=== PATIENT | female | born 1970 | race Hispanic/Latino ===

== ENCOUNTER 2024-07-19 12:59 | Emergency (ER) | payer SELFPAY ==
[2024-07-19] MEDS ORDERED: HYDROCODONE/APAP 7.5/325 MG TAB ONE (13:19)
[2024-07-19] MEDS ORDERED: IBUPROFEN 400 MG TAB ONE ×2 (13:19→13:23)
--- NOTE | 2024-07-19 16:31 | RAD REPORT ---
EXAMINATION: Tib Fib Right CLINICAL INDICATION: Leg pain FINDINGS: No fracture seen
--- NOTE | 2024-07-19 16:35 | RAD REPORT ---
Exam:Foot Left 3 View CLINICAL HISTORY: Left foot pain FINDINGS: No fracture or dislocation seen
--- NOTE | 2024-07-19 16:35 | RAD REPORT ---
EXAMINATION: Tib Fib Left CLINICAL INDICATION: Leg pain FINDINGS: No fracture seen
--- NOTE | 2024-07-19 16:41 | RAD REPORT ---
Exam:Foot Right 3 View CLINICAL HISTORY: Right foot pain FINDINGS: Cortical irregularity base of the second metatarsal probably overlapping of normal bone. Nondisplaced fracture considered less likely. However, if the patient has point tenderness in this region to suggest a fracture then CT scan would be recommended. No dislocation
--- NOTE | 2024-07-19 18:33 | RAD REPORT ---
EXAM:Lower Ext Wo Con W/ Mpr CLINICAL HISTORY: Foot pain status post fall TECHNIQUE: Computed axial tomography was obtained from the left ankle to the left foot. Coronal and s agittal reconstruction performed COMPARISON: X-ray July 19, 2024 FINDINGS: Edema is present within the posterior soft tissues. Small bony density lies adjacent to the lateral malleolus. No additional fracture seen. Specifically, a fracture involving the base of the second metatarsal not noted. No dislocation IMPRESSION: Small bony density adjacent to the lateral malleolus. This has a more chronic than acute appearance b ut should be correlated clinically to assess for point tenderness. No additional fracture seen
--- NOTE | 2024-07-19 18:55 | ER ---
Nurse's Notes [facility] Name: Jessie Simpson Age: 53 yrs Sex: Female : 1970 Arrival Date: 07/19/2024 Time: 12:59 Bed 19 Private MD: Diagnosis: Sprain of ankle-bilateral;Sprain of foot-bilateral Presentation: 07/19 13:14 Chief complaint: Patient states: twisted both my feet and fell, happened today . left iw ankle hurts more than right. 13:14 Acuity: DALIA 4 iw 13:15 Coronavirus screen: At this time, the client does not indicate any symptoms associated iw with coronavirus-19. Ebola Screen: No symptoms or risks identified at this time. Initial Sepsis Screen: Does the patient meet any 2 criteria? No. Patient's initial sepsis screen is negative. Does the patient have a suspected source of infection? No. Patient's initial sepsis screen is negative. Risk Assessment: Do you want to hurt yourself or someone else? Patient reports no desire to harm self or others. Onset of symptoms was July 19, 2024. 13:15 Method Of Arrival: Wheelchair iw Historical: - Allergies: 13:16 No Known Allergies; iw - PMHx: 13:16 Diabetes mellitus; Hypertensive disorder; iw - Immunization history:: Adult Immunizations not up to date. - Infectious Disease History:: Denies. - Social history:: Smoking status: Patient denies any tobacco usage or history of. Screenin:39 [facility] ED Fall Risk Assessment (Adult) History of falling in the last 3 months, iw including since admission Yes- single mechanical fall (1 pt) Confusion or Disorientation No (0 pts) Intoxicated or Sedated No (0 pts) Impaired Gait No (0 pts) Mobility Assist Device Used No (0 pt) Altered Elimination No (0 pt) Score/Fall Risk Level 0 - 2 = Low Risk Oriented to surroundings. Abuse screen: Denies threats or abuse. Nutritional screening: No deficits noted. Tuberculosis screening: No symptoms or risk factors identified. Assessment: 13:38 General: Appears uncomfortable, Behavior is cooperative. Pain: Complains of pain in iw right foot, left foot and anterior aspect of right ankle Pain currently is 10 out of 10 on a pain scale. Neuro: Alexandra Agitation-Sedation Scale (RASS): Level of Consciousness is awake, alert, obeys commands, Oriented to person, place, time, situation. Cardiovascular: Patient's skin is warm and dry. Respiratory: Respiratory effort is even, unlabored, Respiratory pattern is regular. Derm: Skin is intact, is healthy with good turgor. Musculoskeletal: Range of motion: limited in left ankle and right ankle. 17:32 General: Appears in no apparent distress. comfortable, well groomed, well developed, kc6 Behavior is calm, cooperative, appropriate for age. Pain: Complains of pain in right foot and left foot. Neuro: Level of Consciousness is awake, alert, obeys commands, Oriented to person, place, time, situation, Appropriate for age. Cardiovascular: Capillary refill < 3 seconds. Respiratory: Airway is patent Trachea midline Respiratory effort is even, unlabored, Respiratory pattern is regular, symmetrical. GI: No signs and/or symptoms were reported involving the gastrointestinal system. : No signs and/or symptoms were reported regarding the genitourinary system. EENT: No signs and/or symptoms were reported regarding the EENT system. Derm: No signs and/or symptoms reported regarding the dermatologic system. Skin is intact, is healthy with good turgor, Skin is pink, warm \T\ dry. Musculoskeletal: Capillary refill < 3 seconds, Range of motion: limited in left ankle and right ankle. 18:30 Reassessment: Patient appears in no apparent distress at this time. No changes from kc6 previously documented assessment. Patient and/or family updated on plan of care and expected duration. Pain level reassessed. Patient is alert, oriented x 3, equal unlabored respirations, skin warm/dry/pink. Vital Signs: 13:15 BP 157 / 96; Pulse 99; Resp 18; Temp 97.6; Pulse Ox 100% on R/A; Weight 85.73 kg; iw Height 5 ft. 0 in. ; Pain 10/10; 19:05 BP 150 / 92; Pulse 85; Resp 18 S; Pulse Ox 99% on R/A; kc6 13:15 Body Mass Index 36.91 (85.73 kg, 152.4 cm) iw 13:15 Pain Scale: Adult iw ED Course: 13:01 Patient arrived in ED. ra3 13:10 Alonso Chandra PA is PHCP. cp 13:10 Kash Espana DO is Attending Physician. cp 13:15 Triage completed. iw 13:16 Arm band placed on. iw 13:39 No provider procedures requiring assistance completed. Patient did not have IV access iw during this emergency room visit. 15:59 XRAY Foot LEFT 3 View In Process Unspecified. EDMS 15:59 XRAY Foot RIGHT 3 View In Process Unspecified. EDMS 15:59 XRAY Tib Fib LEFT In Process Unspecified. EDMS 15:59 XRAY Tib Fib RIGHT In Process Unspecified. EDMS 16:58 Olga Fernandez, RN is Primary Nurse. kc6 17:32 Patient has correct armband on for positive identification. Bed in low position. Call kc6 light in reach. Side rails up X 1. Adult w/ patient. Pulse ox on. NIBP on. Door closed. Noise minimized. Lights dimmed. Warm blanket given. Pillow given. 17:32 Patient maintains SpO2 saturation greater than 95% on room air. kc6 18:07 Lower Ext Wo Con W/ Mpr In Process Unspecified. EDMS 18:51 Osmani Travis MD is Referral Physician. cp 18:52 Crutch training done. Air stirrup applied to right ankle. em1 18:53 3D boot applied to left foot. em1 19:06 Provided Education on: f/u with orthopedics. kc6 Administered Medications: 13:37 Drug: Hydrocodone-Acetaminophen PO (7.5 mg-325 mg) 1 tabs PO once; RASS on ADMIN: iw Combtv4, Very Agttd3, Agttd2, Rstlss1, AlertClm0, Drwsy-1, Lt Sdtn-2, Mod Sdtn-3, Dp Sdtn-4, UnArsble-5 Route: PO; 17:15 Follow up: Response: No adverse reaction; RASS: Alert and Calm (0) kc6 13:37 Drug: Ibuprofen PO 800 mg PO once Route: PO; iw 17:16 Follow up: Response: No adverse reaction [facility] Medication: 19:06 VIS not applicable for this client. kc6 Outcome: 18:54 Discharge ordered by . cp 19:05 Discharged to home via wheelchair, with family, with significant other, kc6 19:05 Condition: good 19:05 Discharge instructions given to patient, family, significant other, Instructed on discharge instructions, follow up and referral plans. medication usage, crutch walking, Demonstrated understanding of instructions, follow-up care, medications, crutch walking, Prescriptions given X 1, 19:06 Patient left the ED. kc6 Signatures: Dispatcher [employer] EDRajani Suarez, RN Tom Zamarripa em1 Alonso Chandra PA PA cp Campbell, Kaitlyn, RN RN kc6 Codie Faye 3
--- NOTE | 2024-07-19 18:55 | EDPHYS ---
Physician Documentation [facility] Name: Jessie Simpson Age: 53 yrs Sex: Female : 1970 Arrival Date: 07/19/2024 Time: 12:59 Bed 19 Private MD: ED Physician Kash Espana HPI: 07/19 13:25 This 53 yrs old Female presents to ER via Wheelchair with complaints of Fall cp Injury, Foot Injury - BL. 13:25 Patient is a 53-year-old female with past medical history significant for hypertension cp and diabetes who presents to the emergency department with complaints of pain to both ankles and feet. Patient reports she tripped and fell while walking in her home after stepping on a toy left on the ground by her grandchild. Patient denies hitting her head and denies any neck or back pain, reports she twisted both ankles. Patient complains of pain radiating up to both lower legs. Historical: - Allergies: 13:16 No Known Allergies; iw - PMHx: 13:16 Diabetes mellitus; Hypertensive disorder; iw - Immunization history:: Adult Immunizations not up to date. - Infectious Disease History:: Denies. - Social history:: Smoking status: Patient denies any tobacco usage or history of. ROS: 13:30 MS/extremity: Positive for pain, swelling, tenderness, of the right ankle and left cp ankle and left foot and right foot, radiating pain to right lower leg and left lower leg, Negative for decreased range of motion, deformity, paresthesias, 13:30 Constitutional: HX per hpi cp 13:30 Neck: Negative for pain with movement, pain at rest, 13:30 Back: Negative for pain at rest, pain with movement, 13:30 Neuro: Negative for altered mental status, headache, numbness, tingling, weakness, 13:30 All other systems are negative, Exam: 13:35 Constitutional: The patient appears in no acute distress, alert, awake, non-toxic, well cp developed, well nourished, uncomfortable, overweight 13:35 Head/Face: Normocephalic, atraumatic. cp 13:35 Neck: ROM/movement: is normal, is supple, without pain, no range of motions limitations, 13:35 Chest/axilla: Inspection: normal, 13:35 Cardiovascular: Rate: normal, Rhythm: regular, 13:35 Respiratory: the patient does not display signs of respiratory distress, Respirations: normal, no use of accessory muscles, no retractions, labored breathing, is not present, Breath sounds: are clear throughout, no decreased breath sounds, no stridor, no wheezing, 13:35 Abdomen/GI: Inspection: abdomen appears normal, cp 13:35 Back: pain, is absent, ROM is normal, 13:35 Musculoskeletal/extremity: Extremities: grossly normal except: noted in the right ankle and left ankle: mild lateral malleolus swelling, tenderness to palpation, pain with passive ROM, noted in the left foot and right foot: pain, tenderness noted dorsal side of feet, no deformities noted, mild swelling noted bilaterally, 13:35 Neuro: Orientation: to person, place \T\ time. Mentation: is normal, Motor: moves all fours, no focal deficits, Sensation: is normal, Vital Signs: 13:15 BP 157 / 96; Pulse 99; Resp 18; Temp 97.6; Pulse Ox 100% on R/A; Weight 85.73 kg; iw Height 5 ft. 0 in. ; Pain 10/10; 19:05 BP 150 / 92; Pulse 85; Resp 18 S; Pulse Ox 99% on R/A; kc6 13:15 Body Mass Index 36.91 (85.73 kg, 152.4 cm) iw 13:15 Pain Scale: Adult iw MDM: 14:00 Differential diagnosis: contusion, fracture, multiple trauma. 18:54 Medical Screening Exam initiated 18:54 Data reviewed: vital signs, nurses notes, radiologic studies, CT scan, plain films, and cp as a result, I will discharge patient. 18:54 I considered the following discharge prescriptions or medication management in the emergency department Medications were administered in the Emergency Department. See MAR. Care significantly affected by the following chronic conditions: Diabetes, Hypertension. Counseling: I had a detailed discussion with the patient and/or guardian regarding the historical points, exam findings, and any diagnostic results supporting the discharge/admit diagnosis, radiology results, to return to the emergency department if symptoms worsen or persist or if there are any questions or concerns that arise at home. Response to treatment: the patient's symptoms have markedly improved after treatment, and as a result, I will discharge patient. 07/19 18:23 Order name: Glucose, Ancillary Testing; Complete Time: 18:36 EDMS 07/19 13:16 Order name: XRAY Foot LEFT 3 View; Complete Time: 17:01 cp 07/19 17:01 Interpretation: Reviewed report. cp 07/19 13:16 Order name: XRAY Foot RIGHT 3 View; Complete Time: 17:01 cp 07/19 17:02 Interpretation: Report reviewed. cp 07/19 13:16 Order name: XRAY Tib Fib LEFT; Complete Time: 17:01 cp 07/19 17:03 Interpretation: Report reviewed. cp 07/19 13:16 Order name: XRAY Tib Fib RIGHT; Complete Time: 17:01 cp 07/19 17:03 Interpretation: Report reviewed. cp 07/19 17:57 Order name: Lower Ext Wo Con W/ Mpr; Complete Time: 18:36 EDMS 07/19 17:09 Order name: Crutches; Complete Time: 18:43 cp 07/19 17:09 Order name: Ankle Splint: Aircast: for left ankle; Complete Time: 18:43 cp 07/19 17:09 Order name: Walking boot: for right foot/ankle; Complete Time: 18:43 cp Administered Medications: 13:37 Drug: Hydrocodone-Acetaminophen PO (7.5 mg-325 mg) 1 tabs PO once; RASS on ADMIN: iw Combtv4, Very Agttd3, Agttd2, Rstlss1, AlertClm0, Drwsy-1, Lt Sdtn-2, Mod Sdtn-3, Dp Sdtn-4, UnArsble-5 Route: PO; 17:15 Follow up: Response: No adverse reaction; RASS: Alert and Calm (0) kc6 13:37 Drug: Ibuprofen PO 800 mg PO once Route: PO; iw 17:16 Follow up: Response: No adverse reaction kc6 Disposition Summary: 07/19/24 18:54 Discharge Ordered Notes: Location: Home cp Problem: new cp Symptoms: have improved cp Condition: Stable cp Diagnosis - Sprain of ankle - bilateral cp - Sprain of foot - bilateral cp Followup: cp - With: Osmani Travis MD - When: 1 week - Reason: pain continues Discharge Instructions: - Discharge Summary Sheet cp - Ankle Sprain cp - Foot Sprain cp Forms: - Medication Reconciliation Form cp - Antibiotic Education cp - Prescription Opioid Use cp - Patient Portal Instructions cp - Leadership Thank You Letter cp Prescriptions: - Anaprox DS 550 mg Oral Tablet - take 1 tablet ORAL route every 12 hours As needed; 20 tablet; Refills: 0, cp Product Selection Permitted Addendum: 07/23/2024 15:05 I was immediately available on-site in the Emergency Department for consultation in the m s3 care of the patient. Signatures: Dispatcher [employer] EDRajani Suarez RN RN iw Alonso Chandra PA PA Kash Blanchard DO DO ms3 Olga Fernandez RN kc6 Corrections: (The following items were deleted from the chart) 07/19 17:57 17:43 CT RIGHT FOOT WO CONTRAST ordered. EDMS EDMS
[2024-07-19 19:34] VITALS: TEMP 97.6
[2024-07-19 19:35] VITALS: BP 150/92; O2SAT 99
== END 2024-07-19 19:06 | disposition home or self-care (01) ==
LOC: ER 12:59
DX: S93.402A Sprain of unspecified ligament of left ankle, initial encounter (principal); S93.401A Sprain of unspecified ligament of right ankle, initial encounter; S93.602A Unspecified sprain of left foot, initial encounter; S93.601A Unspecified sprain of right foot, initial encounter
CPT/HCPCS: 73700; 76377; 82947; 99284